=== PATIENT | female | born 1960 | race Caucasian/White ===

== ENCOUNTER 2016-12-10 00:14 | Day surgery (SDC) | payer OTHER ==
[~2016-12-10] VITALS: Ht 165.1 cm; Wt 102.0 kg
[~2016-12-10 00:14] MED LIST: ALPR0.254 PO; CLIN60LO2 TP; CLOB15CR3 TOP; HYDR-3089 PO
[2016-12-10 09:22] VITALS: BP 162/90; PULSE 92; RESP 16; O2SAT 97
--- NOTE | 2016-12-10 12:06 | NUR ---
Pt discharged to home, no sedation, no anesthesia used for MRI. Pt's IV discontinued intact. Pt left accompanied by spouse, ambulatory.
--- NOTE | 2016-12-10 15:38 | DRSVH ---
PROCEDURE: MRI MULTIPLE SCLEROSIS BRAIN WITH AND WITHOUT CONTRAST ([id number]) INDICATIONS: Progression of multiple sclerosis. The patient reports no recent prior brain MRI. The patient also reports long-standing history of diagnosis of multiple sclerosis. Prior cervical MRI fr om 2012 has been obtained. TECHNIQUE: Noncontrast sagittal and axial FLAIR, axial and coronal T2 fast spin echo, axial VIBE, axial gradient echo, axial diffusion and ADC through the brain. After the administration of contrast, axial and co yovanny VIBE with fat saturation through the brain. COMPARISON: Outside Film, MR, MR CERVICAL SPINE WO CON, 06/10/2013, 11:35. [facility], MR, MR CERVICAL SPINE W&WO CON, 12/10/2016, 10:38. FINDINGS: Image quality: Excellent. CSF spaces: Ventricles are normal in size and shape. Basal cisterns are patent. No extra-axial flu id collections. Brain: No intracranial bleeds or mass effects. Galvez-white matter interface appears intact. There are extensive periventricular white matter lesions symmetric bilaterally, a number of which hav e centripetal orientation within the corpus callosum. A single contrast-enhancing 3 x 5 mm lesion is seen within the middle third of the corpus callosum on both axial and coronal post contrast imaging. This indicates the presence of active inflammatory component of underlying multiple sclerosis, and there also is a small area of focal encephalomalacia measuring 8 mm in maximal dimension posterior to the posterior third of the right lateral ventricle. No no additional focus of abnormal intracranial enhancement. Diffusion weighted images show no acute ischemic insults. Brainstem appears normal. Normal intravascular flow voids are present. Skull and face: Calvarial marrow signal is normal. Orbits appear normal. Sinuses: Sinuses and mastoids are clear. IMPRESSION: Moderately severe chronic appearing deep white matter lesions in the periventricular brai n parenchyma symmetric bilaterally, including centripetal orientation of lesions within the corpus ca llosum. One of these lesions on the left measuring 3 x 5 mm shows definite contrast enhancement thro ughout. This indicates a component of active underlying disease, in this patient with known long-sta nding multiple sclerosis. Dictated by: Cornelius Mejia M.D. on 12/10/2016 at 14:28 Approved by: Cornelius Mejia M.D. on 12/10/2016 at 15:36
--- NOTE | 2016-12-10 15:44 | DRSVH ---
PROCEDURE: MRI CERVICAL SPINE WITH AND WITHOUT CONTRAST ([id number]) INDICATIONS: PROGESSION OF MULTIPLE SCERLOSIS TECHNIQUE: Noncontrast sagittal T1 spin echo and T2 fast spin echo, sagittal STIR, sagittal PD fast spin echo, f oraminal oblique sagittal T2 fast spin echo, axial gradient echo or T2 fast spin echo through the cer vical spine. After the administration of contrast, sagittal and axial T1 spin echo with fat saturati on through the cervical spine. COMPARISON: Outside Film, MR, MR CERVICAL SPINE WO CON, 06/10/2013, 11:35. [facility], MR, MR MS BRAIN W&WO CON, 12/10/2016, 10:38. FINDINGS: Image quality: Excellent. Alignment and curvature: There is normal bony alignment. Marrow: Marrow demonstrates normal overall signal. Spinal cord: Visualized spinal cord is normal in size, but with stable appearing subtle white matter lesions. These are located dorsal to the C2 and the C4 vertebral bodies, most convincingly demonstr ated on the proton density and STIR imaging, and none of these areas of subtle heterogeneity in cord signal is associated with contrast enhancement. No cerebellar tonsillar herniation. Paraspinous soft tissues: No paravertebral masses or suspicious enhancement. Disc and facet disease: Chronic mid cervical mild degenerative disc disease with slight posterior dis c bulging is again seen, stable over time, with reference to the outside study from [facility] dated 06/10/13. IMPRESSION: With reference to the comparison outside MRI from 06/10/13 there has been no appreciable progression of deep white matter lesions which are subtle in this patient, and best seen located dors ally to the C2 and C4 vertebral bodies on proton density and STIR imaging. Dictated by: Cornelius Mejia M.D. on 12/10/2016 at 15:37 Approved by: Cornelius Mejia M.D. on 12/10/2016 at 15:42
== END 2016-12-10 23:59 | disposition home or self-care (01) ==
LOC: SOUO 00:14 → EDSTATUS 09:45 → SOUO 23:59
PROVIDERS: ATTEND Radiology Diagnostic Radiology
DX: G35 Multiple sclerosis (principal)
CPT/HCPCS: 70553; 72156; A9585

== ENCOUNTER 2017-04-20 17:42 | Emergency (ER) | payer OTHER ==
[~2017-04-20] VITALS: Ht 165.1 cm; Wt 104.0 kg
[~2017-04-20 17:42] MED LIST changes: -CLOB15CR3 TOP
[2017-04-20 17:55] VITALS: BP 180/112; PULSE 127; RESP 20; O2SAT 97
--- NOTE | 2017-04-20 18:54 | ED.REPORT ---
HPI-General Illness Date of Service Apr 20, 2017 ED Provider: George Hernández DO Pt is a 56 year old female with a history of MS and left eye blindness who presents to the ED complaining of fever onset 4 days ago. She c/o associated back pain, vaginal discharge, and weakness. She denies any other symptoms. The pt reports that she was taking ibuprofen with relief, but it has not provided relief today. Pt reports that she has a possible yeast infection. Per pt, she was previously taking steroids for her MS, but not anymore. Nursing Notes Stated Complaint: FEVER,MS SYMPTOMS Chief Complaint: General Complaint Nursing Notes Reviewed: Yes Allergies: Coded Allergies: iodine (Verified Allergy, Unknown, 04/20/17) oxycodone (Verified Allergy, Unknown, 04/20/17) Scheduled PRN Alprazolam (Alprazolam) 0.25 Mg Tablet 0.25 MG PO TID PRN PRN For Anxiety Hydrocodone-Acetaminophen 10-300 mg (Hydrocodone-Acetaminophen 10-300 mg) 1 Each Tablet 1 TABLET PO Q6H PRN PRN For Pain Miscellaneous Medications Clindamycin Phosphate (Clindamycin Phosphate Topical) 60 Ml Lotion 1 APPLIC TP General Time Seen by MD: 18:54 Chief Complaint Fever Hx Obtained From: Patient Arrived By: Walk-in Sudden in Onset?: No Onset Occurred: 4 days ago Symptom Duration: Since onset Location: : Back Quality: Painful Radiation: : Does not radiate Severity: Current: Moderate Severity: Maximum: Moderate Recent Healthcare: No recent doctor visit, No recent hospitalization Similar Sx Previous: No Past Medical History Past Medical History MS, 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 Physical Exam Vital Signs Vital Signs Date Time Temp Pulse Resp B/P Pulse Ox O2 Delivery O2 Flow Rate FiO2 04/20/17 22:45 132/88 04/20/17 21:13 36.9 111 18 134/84 95 Room Air 04/20/17 20:25 36.6 04/20/17 17:55 38.3 127 20 180/112 97 Room Air Initial VS: Reviewed Neck: Supple, Full range of motion Respiratory: Breath sounds normal, Clear to auscultation, No respiratory distress Abdomen / GI: Soft, Non-tender Extremities: Vascular intact, Neuro intact Skin: Warm, Dry, No cyanosis Neurologic: Alert, Oriented, Nonfocal Psychiatric: Mood/affect normal, Behavior normal General/Constitutional: Awake, Alert Blind in left eye. Extraoccular motion abnormalities that are baseline for her. Cardiovascular: Regular rhythm, Heart sounds NL Heart Rate / Rhythm: Positive: Tachycardia Back: Full range of motion Left CVA tenderness Interpretation & Diagnostics Lab Results Interpretation Result Diagram: 04/20/17192904/20/171929 Test 04/20/17 18:33 04/20/17 19:30 Urine Color Yellow (YELLOW) Urine Appearance Cloudy (CLEAR,HAZY) Urine pH 5.5 (5.0-8.0) Urine Specific [place] 1.005 (1.003-1.035) Urine Protein Tracemg/dL (NEG,TRACE) Urine Glucose (UA) Negativemg/dL (NEGATIVE) Urine Ketones Negativemg/dL (NEGATIVE) Urine Occult Blood Large (NEGATIVE) Urine Nitrite Positive (NEGATIVE) Urine Bilirubin Negative (NEGATIVE) Urine Urobilinogen Normalmg/dL (NORMAL) Urine Leukocyte Esterase Large (NEGATIVE) Urine RBC 3-10/hpf (0-2) Urine WBC Packed/hpf (0-5) Urine Epithelial Cells Few/hpf (NONE-MOD) Urine Crystals None seen (NONE SEEN) Urine Bacteria Many/hpf (NONE-FEW) Urine Hyaline Casts None/lpf (NONE) Urine Granular Casts None seen (NONE SEEN) Urine Waxy Casts None seen (NONE SEEN) Urine Red Blood Cell Casts None seen (NONE SEEN) Urine White Blood Cell Casts None seen (NONE SEEN) Urine Mucus None seen (None Seen) Urine Trichomonas None seen (NONE SEEN) Urine Yeast None (NONE SEEN) Urinalysis Comment None Urine Culture Reflexed Indicated White Blood Count 7.6th/mm3 (3.8-10.1) Red Blood Count 4.31mil/mm3 (3.90-5.20) Hemoglobin 13.4g/dL (12.0-15.6) Hematocrit 39.2% (35.0-46.0) Mean Corpuscular Volume 91.0fL (81-100) Mean Corpuscular Hemoglobin 31.1pg (27.0-35.0) Mean Corpuscular Hemoglobin Concent 34.2% (32.0-37.0) Red Cell Distribution Width 12.6% (12.3-15.4) Platelet Count 197bil/L (150-400) Neutrophils (%) (Auto) 78.7% (40-74) Lymphocytes (%) (Auto) 10.0% (14-46) Monocytes (%) (Auto) 10.6% (4-12) Eosinophils (%) (Auto) 0.1% (0-5) Basophils (%) (Auto) 0.3% (0-3) Sodium Level 137mEq/L (134-144) Potassium Level 3.8mEq/L (3.5-5.2) Chloride Level 99mEq/L (97-108) Carbon Dioxide Level 20mmol/L (18-29) Blood Urea Nitrogen 10mg/dL (6-24) Creatinine 0.53mg/dL (0.57-1.00) Estimat Glomerular Filtration Rate 172mL/min (>59) Glucose Level 132mg/dL (60-99) Lactic Acid Level 1.4mmol/L (0.4-2.0) Calcium Level 9.4mg/dL (8.5-10.1) Total Bilirubin 0.8mg/dL (0.0-1.2) Aspartate Amino Transf (AST/SGOT) 110U/L (0-50) Alanine Aminotransferase (ALT/SGPT) 99U/L (0-32) Alkaline Phosphatase 112U/L (25-150) Total Protein 8.2g/dL (6.4-8.4) Albumin 4.1g/dL (3.4-5.0) Re-Eval/Medical Decision Med Decision/Clinical Course This is a very pleasant 56-year-old female who presents with fever and urinary tract infection symptoms. She is found to be febrile and tachycardic. She had mild right CVA tenderness. She had no abdominal tenderness whatsoever. She was well in appearance. She also has rather debilitating multiple sclerosis that has left her blind in the left eye and she has significant visual field loss in the right eye. She thinks that maybe her vision symptoms are a little bit worse. Now that her examination was very reassuring. She was tachycardic but she did not appear to be septic. Laboratory work is reassuring. She had a mild transaminitis. She has had elevated transaminases in the past. Her urine shows multiple indicators of infection. Her metabolic panel was normal she does not have a lactic acidosis. Blood cultures and urine cultures were drawn. She was treated with IV ceftriaxone and fluids and pain medicine. Her fever came down. Her heart rate came down to about 100 110. Answers hemodynamically stable. I consulted with Dr. hoover. He recommended against IV steroids at this time. His thoughts were with me that we should treat the infection and see if the symptoms do not improve treating the underlying infection. Ron agrees with this plan. I talked her about being admitted to the hospital and she definitely would like to go home. She looks well. Her vitals are nearly normal. She has received 24 hours worth of IV antibiotics. We would not do much more in the hospital at this time since her pain is well-controlled and she is now well-hydrated and she does not have a lactic acidosis. I think discharge home with next-day follow-up is very appropriate. She is to come back here 6 PM and see me tomorrow. I will then follow up with the urine and blood cultures. Probably repeat the dose of ceftriaxone and effort, symptoms are not improving consider steroids then. She is discharged in stable condition. Source of Hx: Old records Time of Eval: 21:06 Re-Evaluation/Progress Note: Pt rechecked. Informed pt of plan for discharge. Pt understands and agrees with plan for discharge. F/U instructions and RTER warnings given. All questions addressed. Consultation : Referral / Consult Name: Eleuterio Hoover MD Call Returned at: 20:42 Block Sealer: Agrees with eval, Agrees with plan Note: Recommends not giving steroid. Counseled Regarding: Diagnosis, Lab results, Need for follow-up, When/why to return to ED Discharge & Departure Primary Impression: UTI (urinary tract infection) Urinary tract infection type: site unspecified Hematuria presence: without hematuria Qualified Code: N39.0 - Urinary tract infection, site not specified Additional Impressions: Fever Fever type: unspecified Qualified Code: R50.9 - Fever, unspecified Multiple sclerosis Disposition: Home Discharge Condition All VS Reviewed: Yes Condition: Stable Patient Instructions: Fever in Adults (ED), Multiple Sclerosis (GEN), Urinary Tract Infection in Women (ED) Additional Instructions: Come back tomorrow at 6PM for recheck so that we can look at your cultures. You may need another dose of IV ceftriaxone. Don't drive tonight as you have received sedating medications. Take Keflex 4x daily for 7 days after the conclusion of IV antibiotics. Call your primary care provider or Dr. Canada on Saturday for a follow up appointment next week. Your liver enzymes are elevated and this should be followed up with closely. We will follow up with urine culture tomorrow. Return to the Emergency Department for any new or worsening MS symptoms. Referrals: Maknezie Snyder MD (PCP) Renetta Canada MD Attestation Portions of this note were transcribed by Sybil Currie. I, Dr. Hernández personally performed the history, physical exam and medical decision-making; I reviewed and confirmed the accuracy of the information in the transcribed note. Signed by : Freddie Napier, 04/20/17. copies to: Makenzie Snyder MD; Renetta Canada MD, Todd P DO Apr 20, 2017 18:54 Sybil Shannon Apr 20, 2017 19:28
[2017-04-20 19:07] LABS: COLOR,URINE YELLOW (YELLOW)
[2017-04-20 19:08] LABS: APPEARANCE,URINE CLOUDY (CLEAR,HAZY); OCCULT BLOOD,URINE LARGE (NEGATIVE); PH,URINE 5.5 (5.0-8.0); UROBILINOGEN,URINE NORMAL (NORMAL)
[2017-04-20] MEDS ORDERED: 0.9% Sodium Chloride 1,000 ML IV SCH (19:10)
[2017-04-20] MEDS ORDERED: cefTRIAXone Inj 2,000 MG in Dextrose 5% Minibag Plus 50 ML IV ONE (19:10)
[2017-04-20 19:51] LABS: BASOPHILS % (AUTO) 0.3 % (0-3); EOSINOPHILS % (AUTO) 0.1 % (0-5); MONOCYTES % (AUTO) 10.6 % (4-12); Mean Corpuscular Hemoglobin 31.1 pg (27.0-35.0); NEUTROPHILS % (AUTO) 78.7 % (40-74); Platelet Count 197 bil/L (150-400)
[2017-04-20] MEDS ORDERED: HYDROcodone-APAP 5-325 mg Tablet PO ONE (20:35)
[2017-04-20] MEDS ORDERED: HYDROmorphone 1 mg/mL Inj IVPUSH ONE (21:05)
[2017-04-20 21:13] VITALS: BP 134/84; PULSE 111; RESP 18; O2SAT 95
[2017-04-20 22:45] VITALS: BP 132/88
[2017-04-21] MEDS ORDERED: MELA10TA2 PO (20:43)
[2017-04-21] MEDS ORDERED: ALPR1TAB7 PO (20:43)
[2017-04-21] MEDS ORDERED: LORA5TAB13 PO (20:48)
[2017-04-21] MEDS ORDERED: ASPI325T32 PO (20:48)
[2017-04-21] MEDS ORDERED: IBUP800T28 PO (20:48)
[2017-04-21] MEDS ORDERED: MULT-528 PO (20:48)
[2017-04-21] MEDS ORDERED: ASPI-1148 PO (20:48)
[2017-04-21] MEDS ORDERED: CHOL200025 PO (20:48)
[2017-04-21] MEDS ORDERED: CYAN500 PO (20:48)
[2017-04-21] MEDS ORDERED: MAGN400T4 PO (20:48)
[2017-04-21] MEDS ORDERED: BIOT1TAB2 PO (20:48)
[2017-04-21] MEDS ORDERED: ASCO250T7 PO (20:48)
[2017-04-21] MEDS ORDERED: HYDR-4003 PO (20:48)
[2017-04-24] MEDS ORDERED: CIPR-231 PO ×2 (08:49→10:23)
[2017-04-24] MEDS ORDERED: ONDA8TAB10 PO (08:49)
[2017-04-24] MEDS ORDERED: CEFT2PIG IV (09:01)
[2017-04-24] MEDS ORDERED: ONDA4TAB9 PO (10:24)
== END 2017-04-20 22:46 | disposition home or self-care (01) ==
LOC: SED 17:42
DX: N39.0 Urinary tract infection, site not specified (principal); G35 Multiple sclerosis; H54.42 Blindness, left eye, normal vision right eye; B96.20 Unspecified Escherichia coli [E. coli] as the cause of diseases classified elsewhere; Z90.49 Acquired absence of other specified parts of digestive tract; Z88.5 Allergy status to narcotic agent
CPT/HCPCS: 36415; 80053; 81000; 83605; 85025; 87040; 87077; 87086; 87088; 87186; 96361; 96374; 96375; 99284; J0696; J1170; J1885; J7030